=== PATIENT | male | born 1985 | race Caucasian/White ===

== ENCOUNTER → 2017-02-25 | Outpatient (CLI) | payer BC, OTHER ==
--- NOTE | 2017-02-25 13:19 | Diagnostic Imaging Report ---
INDICATION: Puncture wound. COMPARISON: None. FINDINGS: Three views of the right ankle demonstrate no fracture or dislocation. Articular surfaces are normal. Soft tissue swelling is noted. There is no foreign body. IMPRESSION: Negative right ankle. Dictated by: Dictated on workstation # [id number]
== END ==
LOC: RAD 12:48
PROVIDERS: ATTEND Nurse Practitioner Family
DX: S99.911A Unspecified injury of right ankle, initial encounter (principal); X58.XXXA Exposure to other specified factors, initial encounter; Y99.8 Other external cause status
CPT/HCPCS: 73610